=== PATIENT | male | born 1940 | race Caucasian/White ===

== ENCOUNTER → 2018-04-18 | Outpatient (CLI) | payer OTHER, MEDICARE | LOC: FIMAGING 08:37 | PROVIDERS: ATTEND Physical Medicine & Rehabilitation | DX: M51.37 Other intervertebral disc degeneration, lumbosacral region (principal); M47.896 Other spondylosis, lumbar region ==

== ENCOUNTER → 2018-04-28 | Outpatient (CLI) | payer OTHER, MEDICARE | LOC: FIMAGING 09:28 | PROVIDERS: ATTEND Physical Medicine & Rehabilitation | DX: M51.34 Other intervertebral disc degeneration, thoracic region (principal); N28.9 Disorder of kidney and ureter, unspecified ==

== ENCOUNTER 2018-06-28 | Emergency (ER) | payer OTHER, MEDICARE ==
[2018-06-28] MEDS ORDERED: LET GEL TOPICAL 1 EA SYR TP ONE (00:45)
[2018-06-28] MEDS ORDERED: ACETAMINOPHEN 500 MG TAB PO ONE (00:49)
--- NOTE | 2018-06-28 00:50 | EDPHY ---
H & P Time Seen by Provider: 06/28/18 00:36 HPI/ROS: This patient complains of pain from apparent abscess to the top of his scalp. 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 Batres Tuesday of last week and then developed redness and pain seen in the office by Dr. Bhakat who he reports squeezed the lesion got some pus out and was placed on doxycycline yesterday. He has taken 2 doses of doxycycline but reports worsening pain and describes a sharp and throbbing severe in intensity. Unable to sleep tonight due to the severity of the pain came in for evaluation. ROS: Constitutional: No fevers. HEENT: He reports swelling the affected scalp region with some drainage. Cardiovascular: No lightheadedness GI: No nausea or vomiting 7 point review of symptoms is performed and otherwise negative with exception of pertinent positives and negatives listed in HPI and ROS Smoking Status: Former smoker Physical Exam: Physical Exam Vital signs are normal. General: No acute distress HEENT: Atraumatic. Patient has an area approximately 6 x 4 cm erythema to the left vertex bordering on parietal scalp region with warmth to touch and to fluctuant areas each approximately 2 cm in diameter in the center of this with some serous-appearing fluid leaking from the more anterior of the 2. Eyes: Pupils equal and react to light. Extraocular motions are intact. Lungs: No respiratory distress. Cardiac: Brisk capillary refill is intact throughout. Skin: No rash or pallor. Neuro: Alert and oriented x3 with no sensorimotor deficits. Initial differential diagnosis: Scalp abscess, cellulitis, potential deeper invasion of skin CA Constitutional: Initial Vital Signs Temperature (C) 36.6 C 06/28/18 00:06 Heart Rate 62 06/28/18 00:06 Respiratory Rate 18 06/28/18 00:06 Blood Pressure 144/81 H 06/28/18 00:06 O2 Sat (%) 94 06/28/18 00:06 O2 Delivery Mode Room Air Allergies/Adverse Reactions: No Known Allergies Allergy (Unverified 11/22/13 16:26) Home Medications: Medication Instructions Recorded Aspirin [Aspirin 81mg (*)] 81 mg PO DAILY 02/18/16 Eplerenone [Inspra 25 MG (*)] 12.5 mg PO DAILY 02/18/16 Lisinopril 10 mg PO 02/18/16 Metoprolol Tartrate 25 mg PO 02/18/16 Omeprazole [Prilosec 20 mg] 20 mg PO DAILY 02/18/16 Rosuvastatin Calcium [Crestor 10mg 10 mg PO DAILY 02/18/16 (RX)] Ubiquinol [Active-Q] 200 mg PO 02/18/16 oxyCODONE/APAP 5/325 [Percocet 1 - 2 tab PO Q4-6PRN PRN #20 tab 06/28/18 5/325 (*)] MDM/Departure - [facility] Procedures: I&D wound: After verbal consent patient treated with let solution topically followed by 1% plain lidocaine mixed 50 50 with 0.5% Marcaine, 27 gauge needle - 4 mL with good effect and then used a 15. Scalpel blade and made 2 small incisions along the original wound line with a small amount of serous appearing discharge slightly cloudy from the more anterior the 2 wounds and no significant discharge from the posterior of the to swollen areas. Most of this is consistent with [place] edema rather than significant purulence. A packed both wounds with quarter-inch gauze. Patient tolerated the procedure well. There were no complications. Procedure was performed myself. Medications Given: Discontinued Medications Acetaminophen (Tylenol) 1,000 mg PO EDNOW ONE Stop: 06/28/18 00:50 Last Admin: 06/28/18 01:01 Dose: 1,000 mg Ceftriaxone Sodium/Dextrose (Rocephin 1 Gm (Premix)) 50 mls @ 100 mls/hr IV EDNOW ONE PRN Reason: Protocol Stop: 06/28/18 01:14 Last Admin: 06/28/18 01:18 Dose: 50 mls Oxycodone HCl (Oxycodone Ir) 10 mg PO EDNOW ONE Stop: 06/28/18 01:59 Last Admin: 06/28/18 02:24 Dose: 10 mg Tetracaine/Epinephrine/Lidocaine (Let Gel Topical) 1 ea TP EDNOW ONE Stop: 06/28/18 00:46 Last Admin: 06/28/18 01:01 Dose: 1 ea ED Course/Re-evaluation: Let gel IV placed Tylenol p.o. Ceftriaxone IV I did not obtained wound culture here today because to wound cultures were obtained 2 days ago and are pending per patient. I think that he is on appropriate antibiotic but had difficulty with pain. Given the evident cellulitis with this wound infection, treated him with IV ceftriaxone. 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 We treated him with Tylenol here since he wants to drive home with plan to take Oxy IR upon arrival home and continue with Percocet as needed for pain that prevents sleep. 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 I urged to closer follow-up within 2-3 days or other than the planned follow-up in 1 week given his increase in symptoms. I think that the doxycycline antibiotic that he was placed on is a good choice. The patient understands need to return emergency department should develop any significant worsening of symptoms despite treatment plan - Depart Disposition: Home, Routine, Self-Care Clinical Impression: Wound infection Condition: Good Instructions: Oxycodone, Rapid Release (By mouth), Wound Infection (ED) Additional Instructions: Diagnosis: Wound infection A drained a small amount of fluid from you're scalp wound tonight. You or also treated with IV Rocephin/ceftriaxone antibiotic Plan: Apply warm packs 3 times a day to affected area Leave the gauze cassandra/drains in place for the next 2-3 days and then removed. 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 Continue the doxycycline Percocet or Tylenol for pain control as needed. Return emergency department for any significant worsening despite treatment plan. Prescriptions: oxyCODONE/APAP 5/325 [Percocet 5/325 (*)] 1 - 2 tab PO Q4-6PRN PRN #20 tab PRN Reason: Pain Referrals: Patient,NotPresent [Primary Care Provider] - As per Instructions
[2018-06-28] MEDS ORDERED: oxyCODONE IR 5 MG TAB PO ONE (01:58)
[2018-06-28 02:34] VITALS: BP 130/75
== END 2018-06-28 02:28 | disposition home or self-care (01) ==
LOC: CED
PROC: 0H90XZZ Drainage of Scalp Skin, External Approach (ICD-10-PCS; principal; 2018-06-28)
DX: L02.811 Cutaneous abscess of head [any part, except face] (principal); Z85.828 Personal history of other malignant neoplasm of skin
CPT/HCPCS: 10060; 96365; 99284; J0696; 80048-ER